=== PATIENT | male | born 1990 | race Caucasian/White ===

== ENCOUNTER 2019-09-09 07:36 | Emergency (ER) | payer BC, MEDICAID ==
[~2019-09-09] VITALS: Ht 165.1 cm; Wt 105.7 kg
[2019-09-09 07:42] VITALS: BP 131/86
[2019-09-09 08:36] LABS: BASOPHILS % (AUTO) 0.4 % (0.0-2.0); EOSINOPHILS # (AUTO) 0.1 K/uL (0-0.4); EOSINOPHILS % (AUTO) 1.7 % (0.0-4.0); HEMATOCRIT 46.6 % (36-52); HEMOGLOBIN 15.4 g/dL (12.0-18.0); LYMPHOCYTES # (AUTO) 1.4 K/uL (2.0-11.5); MEAN CORPUSCULAR HEMOGLOBIN 30 pg (27-31); MEAN CORPUSCULAR HGB CONC 33 g/dL (33-37); MEAN CORPUSCULAR VOLUME 90.9 fL (80-94); MONOCYTES # (AUTO) 0.7 K/uL (0.8-1.0); MONOCYTES % (AUTO) 10.2 % (1.7-9.3); NEUTROPHILS # (AUTO) 4.5 K/uL (1.8-7.7); NEUTROPHILS % (AUTO) 66.7 % (42.2-75.2); PLATELET COUNT (AUTO) 204 K/uL (140-450); RED BLOOD CELL COUNT(AUTO) 5.13 MIL/uL (4.20-6.10); RED CELL DISTRIBUTION WIDTH 12.7 % (11.6-13.7); WHITE BLOOD COUNT (AUTO) 6.7 K/uL (4.8-10.8)
[2019-09-09 08:49] LABS: BARBITURATE, URINE NEGATIVE ng/ml (NEG <=200); BENZODIAZEPINE, URINE NEGATIVE ng/mL (NEG <=200); CANNABINOID, URINE NEGATIVE ng/mL (NEG <=50); COCAINE, URINE NEGATIVE ng/mL (NEG <=300); OPIATE, URINE NEGATIVE ng/mL (NEG <=2000); PHENCYCLIDINE SCREEN,URINE NEGATIVE ng/mL (NEG <=25)
[2019-09-09 09:03] LABS: ANION GAP 8.5 (8-16); CARBON DIOXIDE 32.3 mmol/L (21-32); CREATININE 0.9 mg/dL (0.7-1.3); POTASSIUM 3.8 mmol/L (3.5-5.1)
[2019-09-09 09:04] LABS: ALBUMIN 3.6 g/dL (3.4-5.0)
[2019-09-09 09:13] LABS: MAGNESIUM 1.8 mg/dL (1.8-2.4)
[2019-09-09 09:41] LABS: THYROID STIMULATING HORMONE 3.81 uIU/mL (0.34-3.74)
[2019-09-09 11:19] VITALS: BP 112/78
== END 2019-09-09 11:19 | disposition home or self-care (01) ==
LOC: MED 07:36
DX: R20.2 Paresthesia of skin (principal); R00.2 Palpitations; R51 Headache
CPT/HCPCS: 36415; 70450; 80053; 80305; 83735; 84443; 85025; 93005; 99284

== ENCOUNTER 2024-03-18 00:14 | Emergency (ER) | payer BC, MEDICAID ==
[~2024-03-18] VITALS: Ht 170.2 cm; Wt 114.8 kg
[2024-03-18 00:25] VITALS: BP 121/86; PULSE 69; RESP 18; TEMP 97.7; O2SAT 99
== END 2024-03-18 01:13 | disposition home or self-care (01) ==
LOC: MED 00:14
DX: R07.89 Other chest pain (principal); R00.2 Palpitations; R53.83 Other fatigue
CPT/HCPCS: 93005; 99283